=== PATIENT | female | born 1935 | race Hispanic/Latino ===

== ENCOUNTER 2021-05-03 16:15 | Emergency (ER) | payer BC ==
[2021-05-03] MEDS ORDERED: HYDROcodone/ACETAMINOPHEN 5-325 MG TAB PO ONE (19:58)
--- NOTE | 2021-05-03 20:14 | Emergency Department Report ---
ED Extremity Problem HPI - General Chief complaint: Extremity Problem,Nontraumatic Stated complaint: LEGS NUMB Source: patient, EMS Mode of arrival: Stretcher Limitations: No Limitations - History of Present Illness Initial comments: Patient is an 85-year-old female with history of COPD on home oxygen, chronic low back pain here with complaint of bilateral lower extremity leg numbness and paresthesias that has been present for the past 12 hours, starting at 8 AM this morning. She notes that she has also had some generalized weakness. She states she has mild low back pain at this time. She notes no injury to her back or head. Severity scale (0 -10): 4 - Related Data Allergies Allergy/AdvReac Type Severity Reaction Status Date / Time No Known Allergies Allergy Unverified 05/03/21 16:28 ED Review of Systems ROS: Stated complaint: LEGS NUMB Other details as noted in HPI Constitutional: denies: chills, fever Eyes: denies: eye pain, eye discharge, vision change ENT: denies: ear pain, throat pain Respiratory: denies: cough, shortness of breath, wheezing Cardiovascular: denies: chest pain, palpitations Endocrine: no symptoms reported Gastrointestinal: denies: abdominal pain, nausea, diarrhea Genitourinary: denies: urgency, dysuria, discharge Musculoskeletal: denies: back pain, joint swelling, arthralgia Skin: as per HPI Neurological: weakness, numbness, paresthesias. denies: headache Psychiatric: denies: anxiety, depression Hematological/Lymphatic: denies: easy bleeding, easy bruising ED Past Medical Hx - Past Medical History Previous Medical History?: Yes Hx Arthritis: Yes Additional medical history: SCOLIOSIS ED Physical Exam - General Limitations: No Limitations General appearance: alert, in no apparent distress - Head Head exam: Present: atraumatic, normocephalic - Eye Eye exam: Present: normal appearance - ENT ENT exam: Present: mucous membranes moist - Neck Neck exam: Present: normal inspection - Respiratory Respiratory exam: Present: normal lung sounds bilaterally. Absent: respiratory distress - Cardiovascular Cardiovascular Exam: Present: regular rate, normal rhythm. Absent: systolic murmur, diastolic murmur, rubs, gallop - GI/Abdominal GI/Abdominal exam: Present: soft, normal bowel sounds. Absent: tenderness - Rectal Rectal exam: Present: deferred - Extremities Exam Extremities exam: Present: normal inspection, full ROM. Absent: tenderness, pedal edema - Back Exam Back exam: Present: normal inspection - Neurological Exam Neurological exam: Present: alert, oriented X3. Absent: motor sensory deficit - Psychiatric Psychiatric exam: Present: normal affect - Skin Skin exam: Present: warm, dry, intact. Absent: rash ED Course Vital Signs 05/03/21 16:24 Temperature 98.1 F Pulse Rate 92 H Respiratory 16 Rate Blood Pressure 148/90 [Left] O2 Sat by Pulse 97 Oximetry - Reevaluation(s) Reevaluation #1: 05/03/21 22:45 Patient is noted to have significant degenerative disc disease of the spine. I discussed with patient and offered admission versus discharge with close follow- up given that she is currently neuro intact. Patient states that she would rather be discharged home at this time. Plan for discharge and patient states that she will have pain meds at home. ED Medical Decision Making - Lab Data Result diagrams: 05/03/21 20:10 05/03/21 20:10 - Radiology Data Radiology results: report reviewed, image reviewed - Medical Decision Making This is a 85-year-old female here with complaint of bilateral lower extremity paresthesias at the calf. On exam patient is neuro intact with normal lower extremity neuro exam. Plan for evaluation with basic labs including check electrolytes and CK levels. Also obtain CT scan of the brain and L-spine. Will reevaluate after pain control to see how patient feels. Critical care attestation.: If time is entered above; I have spent that time in minutes in the direct care of this critically ill patient, excluding procedure time. ED Disposition Clinical Impression: Paresthesia Disposition: 01 HOME / SELF CARE / HOMELESS Is pt being admited?: No Does the pt Need Aspirin: No Condition: Stable Instructions: Paresthesia Additional Instructions: If you develop any worsening symptoms please return to the emergency department. Otherwise you should follow-up with neurosurgery. Referrals: EVELIN RILEY II, MD [Staff Physician] - 3-5 Days Time of Disposition: 22:54
--- NOTE | 2021-05-03 20:32 | XRay Report ---
XR chest 1V ap INDICATION / CLINICAL INFORMATION: numbness COMPARISON: None available. FINDINGS: SUPPORT DEVICES: None. HEART / MEDIASTINUM: No significant abnormality. LUNGS / PLEURA: Elevated right hemidiaphragm. Bibasilar parenchymal opacities. Costophrenic sulci are sharp. No pneumothorax. ADDITIONAL FINDINGS: No significant additional findings. IMPRESSION: 1. Bibasilar opacities most consistent with atelectasis. No acute airspace disease identified. Signer Name: Romeo Andrew MD Signed: 05/03/2021 8:28 PM Workstation Name: [id number]
[2021-05-03 20:43] LABS: Basophils % (Auto) 0.2 % (0.0-1.8); Eosinophils # (Auto) 0.1 K/mm3 (0.0-0.4); Eosinophils % (Auto) 0.7 % (0.0-4.3); Hematocrit 40.8 % (30.3-42.9); Hemoglobin 13.2 gm/dl (10.1-14.3); Lymphocytes # (Auto) 1.6 K/mm3 (1.2-5.4); Lymphocytes % (Auto) 13.8 % (13.4-35.0); Mean Corpuscular HGB Conc 32 % (30-34); Mean Corpuscular Volume 89 fl (79-97); Monocytes # (Auto) 0.6 K/mm3 (0.0-0.8); Monocytes % (Auto) 5.5 % (0.0-7.3); Platelet Count 507 K/mm3 (140-440); Red Blood Count 4.58 M/mm3 (3.65-5.03); Red Cell Distribution Width 13.8 % (13.2-15.2)
[2021-05-03 21:01] LABS: Alanine Aminotransferase 12 units/L (7-56); Albumin 4.1 g/dL (3.9-5); BUN/Creatinine Ratio 13; Blood Urea Nitrogen 10 mg/dL (7-17); Calcium 9.7 mg/dL (8.4-10.2); Hemolysis Index 4
--- NOTE | 2021-05-03 21:18 | Cat Scan Report ---
CT HEAD WITHOUT CONTRAST INDICATION / CLINICAL INFORMATION: LE numbness. TECHNIQUE: All CT scans at this location are performed using CT dose reduction for ALARA by means of automated e xposure control. COMPARISON: None available. Limitations: Patient motion artifact is a limiting factor on the initial acquisition. Study was repea kenya to overcome this limitation. FINDINGS: HEMORRHAGE: No evidence of intracranial hemorrhage or extra-axial fluid collection. EXTRA-AXIAL SPACES: Cortical sulci and sylvian fissures are enlarged reflecting a degree of parenchym al volume loss which is within normal limits for the patient's age of 85 years. Basilar cisterns have an unremarkable appearance. VENTRICULAR SYSTEM: The third and lateral ventricles are enlarged reflecting presence of age related parenchymal volume loss. CEREBRAL PARENCHYMA: Periventricular and deep white matter lucency is observed. This is probably seco ndary to microvascular ischemic change. There is no indication of recent infarction. No areas of ence phalomalacia are identified. MIDLINE SHIFT OR HERNIATION: There is no mass effect. CEREBELLUM / BRAINSTEM: Brainstem has an unremarkable appearance. Age related cerebellar atrophy is n oted. MIDLINE STRUCTURES:Pituitary gland has an unremarkable appearance. No abnormalities are seen in the p ineal region. INTRACRANIAL VESSELS:Calcified atherosclerotic plaque is present along the course of the cavernous se gments of both internal carotid arteries. ORBITS: Status post bilateral cataract surgery. No additional abnormality. SOFT TISSUES of HEAD: No significant abnormality. CALVARIUM: Evaluation of bone windows reveals no abnormalities. PARANASAL SINUSES / MASTOID AIR CELLS: Paranasal sinuses are free from inflammatory mucosal disease. Mastoid air cells are normally pneumatized. IMPRESSION: 1. Age-related involutional change. 2. No acute intracranial abnormality. Signer Name: Raul Correa MD Signed: 05/03/2021 9:14 PM Workstation Name: [id number]
--- NOTE | 2021-05-03 21:28 | Cat Scan Report ---
CT LUMBAR SPINE WITHOUT CONTRAST INDICATION: LE numbness. TECHNIQUE: Axial CT images of the lumbar spine were obtained. Sagittal and coronal reformatted images were produ janessa. All CT scans at this location are performed using CT dose reduction for ALARA by means of automa kenya exposure control. COMPARISON: None available. FINDINGS: POST-SURGICAL CHANGES: Intrathecal administration catheter and pump are demonstrated. ALIGNMENT: Severe levoscoliosis is noted. Mahoney angle is about 65 degrees. VERTEBRAE: No indication of fracture or bone destruction. INTERVERTEBRAL DISCS: Loss of disc height and disc vacuum phenomena is present throughout the lumbar region. [id number] ANALYSIS: T12/L1: Loss of disc height and disc vacuum phenomena. Bilateral facet arthropathy. Right worse than left neuroforaminal stenosis. Central canal is adequate in size. L1-2: Central spinal canal is adequate in size. Severe right-sided neuroforaminal stenosis is evident . Central spinal canal is adequate L2-3: Loss of disc height is noted. Prominent right lateral osteophyte formation is observed. Severe right-sided L2 nerve root neuroforaminal stenosis is evident. Central spinal canal and left L2 nerve root neuroforamina are adequately maintained. L3-4: Near-complete loss of disc height is noted. Right lateral abdomen formation is observed. Right- sided foraminal stenosis is present. Central spinal canal and left L3 nerve root neuroforamina are ad equate in size. L4-5: Complete loss of disc height is noted. Disc vacuum phenomena is evident. Reactive change second chapis to degenerative disc disease is observed the adjacent endplates. Left worse than right facet arth ritic changes are noted. Severe bilateral neuroforaminal stenosis is also observed at the L4-5 level. L5-S1: Loss of disc height and disc vacuum phenomena are noted. Left worse than right facet arthropat hy is observed. Central spinal canal and neuroforamina are adequate in size. PARASPINAL SOFT TISSUES: No significant abnormality. ADDITIONAL FINDINGS: None. IMPRESSION: 1. Severe levoscoliosis with widespread lumbar spondylosis. 2. Right worse than left neuroforaminal stenosis at multiple levels. 3. Redemonstration catheter and pump are identified. Catheter tip is above the most cephalad level of this examination. Signer Name: Raul Correa MD Signed: 05/03/2021 9:23 PM Workstation Name: [id number]
[2021-05-03 22:18] LABS: Bilirubin,Urine NEG (Negative); Blood,Urine NEG (Negative); Color,Urine Yellow (Yellow); Mucus,Urine FEW /HPF; Protein,Urine <15 mg/dL mg/dL (Negative); Urobilinogen,Urine < 2.0 mg/dL (<2.0)
[2021-05-04 05:45] VITALS: BP 140/87
== END 2021-05-04 04:30 | disposition home or self-care (01) ==
LOC: ED 16:15
DX: R20.0 Anesthesia of skin (principal); M19.90 Unspecified osteoarthritis, unspecified site; J44.9 Chronic obstructive pulmonary disease, unspecified; Z98.890 Other specified postprocedural states
CPT/HCPCS: 36415; 70450; 71045; 72131; 80053; 81001; 82550; 83735; 84484; 85025; 99285